=== PATIENT | male | born 1940 | race Native Hawaiian/Other Pacific Islander ===

== ENCOUNTER 2018-07-17 11:31 | Observation (INO) | payer OTHER ==
[2018-07-17 11:38] VITALS: BMI 18.3
[2018-07-17 12:35] LABS: BASO % 0.6 % (0.0-2.0); EOS # 0.1 K/uL (0.0-0.7); HEMOGLOBIN 13.6 g/dL (12.0-18.0); LYMPH # 0.8 K/uL (1.0-4.3); LYMPH % 10.8 % (20.0-40.0); MEAN CELL VOLUME 92.7 fl (80.0-94.0); MEAN CORPUSCULAR HEMOGLOBIN 31.2 pg (27.0-31.0); MEAN CORPUSCULAR HGB CONC 33.7 g/dL (33.0-37.0); MONO # 0.5 K/uL (0.0-0.8); MONO % 7.3 % (0.0-10.0); NEUT % 79.3 % (50.0-75.0); RBC 4.34 Mil/uL (4.40-5.90); WHITE BLOOD COUNT 7.5 K/uL (4.8-10.8)
[2018-07-17 12:37] LABS: INR 1.3; PROTHROMBIN TIME 15.3 Seconds (9.8-13.1)
[2018-07-17 12:39] LABS: PARTIAL THROMBOPLASTIN TIME 44.9 Seconds (25.6-37.1)
[2018-07-17 12:42] LABS: BLOOD UREA NITROGEN 24 mg/dl (9-20); CALCIUM 9.4 mg/dL (8.4-10.2); GFR NON-AFRICAN AMERICAN 59
[2018-07-17 12:54] LABS: B-TYPE NATRIURETIC PEPTIDE 218 pg/ml (0-900)
--- NOTE | 2018-07-17 13:44 | CT ---
Date of service: 07/17/2018 PROCEDURE: CT HEAD WITHOUT CONTRAST. HISTORY: head trauma COMPARISON: None available. TECHNIQUE: Axial computed tomography images were obtained through the head/brain without intravenous contrast. Radiation dose: Total exam DLP = 855.52 mGy-cm. This CT exam was performed using one or more of the following dose reduction techniques: Automated exposure control, adjustment of the mA and/or kV according to patient size, and/or use of iterative reconstruction technique. FINDINGS: HEMORRHAGE: No intracranial hemorrhage. BRAIN: No mass effect or edema. No atrophy or chronic microvascular ischemic changes. VENTRICLES: Unremarkable. No hydrocephalus. CALVARIUM: Unremarkable. PARANASAL SINUSES: Unremarkable as visualized. No significant inflammatory changes. MASTOID AIR CELLS: Unremarkable as visualized. No inflammatory changes. OTHER FINDINGS: None. IMPRESSION: Normal CT of the Head.
--- NOTE | 2018-07-17 13:50 | CT ---
Date of service: 07/17/2018 PROCEDURE: CT Cervical Spine without contrast HISTORY: head trauma COMPARISON: None available. TECHNIQUE: Axial computed tomography images were obtained of the cervical spine without the use of intravenous contrast. Coronal and sagittal reformatted images were created and reviewed. Radiation dose: Total exam DLP = 274.9 mGy-cm. This CT exam was performed using one or more of the following dose reduction techniques: Automated exposure control, adjustment of the mA and/or kV according to patient size, and/or use of iterative reconstruction technique. FINDINGS: VERTEBRAE: No fracture. Scoliosis. No destructive bony lesion. DISCS/SPINAL CANAL/NEURAL FORAMINA: No significant central canal or neural foraminal stenosis. Discs heights are grossly preserved. PARASPINAL SOFT TISSUES: Unremarkable. OTHER FINDINGS: Severe bullous disease in the lung apices. IMPRESSION: No acute fracture.
[2018-07-17] MEDS ORDERED: Sodium Chloride 0.9% 1,000 ML IV STA (13:57)
--- NOTE | 2018-07-17 14:04 | ED PDOC ---
Syncope/Near Syncope/Dizziness Time Seen by Provider: 07/17/18 11:52 Chief Complaint (Nursing): Trauma Chief Complaint (Provider): syncope and head injury History Per: Patient History/Exam Limitations: no limitations Onset/Duration Of Symptoms: Hrs Fall Associated With With Symptoms: Positive Injury Additional Complaint(s): Michael Maciel is a 78 year old male, with a past medical history of emphysema, who presents to the emergency department accompanied by daughter for evaluation of bleeding to posterior head s/p syncopal episode. According to daughter, she went to check on him this morning and found him on the kitchen floor with a paper towel against his head and bleeding. Patient has no recollection of how he fell and doesn't remember sitting up or getting a paper towel. Patient had an MRI due to dizziness a few months ago that showed degenerative age related changes and also had full cardiac and neurologic work up since. Daughter reports that patient has full mental function and takes care of his grandkids on a regular basis. Patient is seeming more confused and forgetful right now. He denies any current pain to the head or neck. He denies any fever, chills, chest pain, shortness of breath or other medical complaints. PMD: None provided. Past Medical History Reviewed: Historical Data, Nursing Documentation, Vital Signs Vital Signs: Last Vital Signs Temp 97.7 F 07/17/18 11:35 Pulse 55 L 07/17/18 11:35 Resp 18 07/17/18 11:35 BP 158/65 H 07/17/18 11:35 Pulse Ox 99 07/17/18 11:35 - Medical History PMH: Emphysema - Surgical History Surgical History: No Surg Hx - Family History Family History: States: Unknown Family Hx - Social History Current smoker - smoking cessation education provided: No Alcohol: None Drugs: Denies - Allergies Allergies/Adverse Reactions: Allergies Allergy/AdvReac Type Severity Reaction Status Date / Time No Known Allergies Allergy Verified 07/17/18 11:43 Review of Systems ROS Statement: Except As Marked, All Systems Reviewed And Found Negative Constitutional: Negative for: Fever, Chills Cardiovascular: Negative for: Chest Pain Respiratory: Negative for: Shortness of Breath Skin: Positive for: Other (head injury) Neurological: Positive for: Confusion (and forgetfullness), Other (syncopal episode). Negative for: Headache Physical Exam - Reviewed Nursing Documentation Reviewed: Yes Vital Signs Reviewed: Yes - Physical Exam Appears: Positive for: Non-toxic, No Acute Distress Head Exam: Positive for: NORMAL INSPECTION, NORMOCEPHALIC. Negative for: ATRAUMATIC (1cm linear laceration with minimal bleeding to the left occiput, no tenderness to palpation of spine.) Skin: Positive for: Normal Color, Warm, Dry Eye Exam: Positive for: Normal appearance, EOMI, PERRL Neck: Positive for: Normal, Painless ROM, Supple Cardiovascular/Chest: Positive for: Regular Rate, Rhythm. Negative for: Murmur Respiratory: Positive for: Normal Breath Sounds. Negative for: Respiratory Distress Gastrointestinal/Abdominal: Positive for: Normal Exam, Soft. Negative for: Tenderness, Guarding, Rebound Back: Positive for: Normal Inspection. Negative for: L CVA Tenderness, R CVA Tenderness, Vertebral Tenderness Extremity: Positive for: Normal ROM (upper and lower extremities). Negative for: Tenderness, Deformity, Swelling Neurological/Psych: Positive for: Awake, Alert, Normal Tone, Symmetric/Intact Strength, Oriented, Cerebellar Tests (normal), independent beauty consultant II-XII (intact). Negative for: Lethargic, Motor/Sensory Deficits, Facial Droop - Laboratory Results Result Diagrams: 07/17/18 12:00 07/17/18 12:00 Lab Results: PT 15.3 Seconds (9.8-13.1) H 07/17/18 12:00 INR 1.3 07/17/18 12:00 APTT 44.9 Seconds (25.6-37.1) H 07/17/18 12:00 Troponin I < 0.0120 ng/mL (0.00-0.120) 07/17/18 12:00 NT-Pro-B Natriuret Pep 218 pg/ml (0-900) 07/17/18 12:00 - ECG O2 Sat by Pulse Oximetry: 99 (RA) Pulse Ox Interpretation: Normal Medical Decision Making Medical Decision Making: Time: 11:22 Initial Impression: Most likely syncope with subsequent head trauma. CT head and cervical spine, cardiac work up and most likely admission Initial Plan: --Type and screen --Cervical spine w/o contrast [CT] --Head w/o contrast [CT] --BNP --BMP --Troponin I --CBC w/ differential --PTT --PT --Chest portable [RAD] --NaCl 1,000 ml IV 1,000 mls/hr --Reevaluation 13:[address] FINDINGS: HEMORRHAGE: No intracranial hemorrhage. BRAIN: No mass effect or edema. No atrophy or chronic microvascular ischemic changes. VENTRICLES: Unremarkable. No hydrocephalus. CALVARIUM: Unremarkable. PARANASAL SINUSES: Unremarkable as visualized. No significant inflammatory changes. MASTOID AIR CELLS: Unremarkable as visualized. No inflammatory changes. OTHER FINDINGS: None. IMPRESSION: Normal CT of the Head. 13:[address] FINDINGS: VERTEBRAE: No fracture. Scoliosis. No destructive bony lesion. DISCS/SPINAL CANAL/NEURAL FORAMINA: No significant central canal or neural foraminal stenosis. Discs heights are grossly preserved. PARASPINAL SOFT TISSUES: Unremarkable. OTHER FINDINGS: Severe bullous disease in the lung apices. IMPRESSION: No acute fracture. 13:[address] head and neck unremarkable. Admitted for syncope to OBS to the hospitalist. Scribe Attestation: Documented by Sean Knott, acting as a scribe for Christine Clayton MD. Provider Scribe Attestation: All medical record entries made by the Scribe were at my direction and personall y dictated by me. I have reviewed the chart and agree that the record accurately reflects my personal performance of the history, physical exam, medical decision making, and the department course for this patient. I have also personally directed, reviewed, and agree with the discharge instructions and disposition. Time: 1500 -- At this time, patient is refusing to stay. Patient would like to follow up with PMD. Provider explained risk of developing brain bleed and cardiac abnormalities which lead to syncope. Discussed with family and resident. Patient's daughters support the decision not to stay. Family practice resident also explained risk of leaving. Given information to contact medical records for lab results. Patient and family advised to return if change in mind or new symptoms develop. Otherwise, patient is to follow up with PMD tomorrow. Scribe Attestation: Documented by Melinda Gauthier, acting as a scribe for Christine Clayton MD. Provider Scribe Attestation: All medical record entries made by the Scribe were at my direction and personally dictated by me. I have reviewed the chart and agree that the record accurately reflects my personal performance of the history, physical exam, medical decision making, and the department course for this patient. I have also personally directed, reviewed, and agree with the discharge instructions and disposition. Disposition - Clinical Impression Clinical Impression: Syncope and collapse, Head injury due to trauma - Disposition Disposition: Against Medical Advice Disposition Time: 13:58 Condition: GUARDED
--- NOTE | 2018-07-17 14:57 | RAD ---
Date of service: 07/17/2018 HISTORY: possible admission COMPARISON: No prior. TECHNIQUE: 1 view obtained. FINDINGS: LUNGS: No active pulmonary disease. PLEURA: No significant pleural effusion identified, no pneumothorax apparent. CARDIOVASCULAR: aortic atherosclerotic calcification present. Normal cardiac size. No pulmonary vascular congestion. OSSEOUS STRUCTURES: No significant abnormalities. VISUALIZED UPPER ABDOMEN: Normal. OTHER FINDINGS: None. IMPRESSION: No active disease.
[2018-07-17 15:43] VITALS: BP 132/74; PULSE 64; RESP 19; TEMP 98.6
[2018-07-17 16:27] VITALS: O2SAT 99
--- NOTE | 2018-07-17 17:26 | CP.PCM.CON ---
History of Present Illness - History of Present Illness History of Present Illness: Neurology Consultation Note: Consult requested by Dr. Woods Mr. Maciel is a 78-year-old man with a past medical history of GERD and previous syncopal episode with cardiac and neurological work-up, who was found by his daughter after another syncopal episode that resulted in an occipital laceration. He was holding a napkin to his head due to bleeding when she found him. He did not recall how he fell, or even recall going to obtain a the napkin for the blood. Non-contrast CT scan of the head was normal. Neurology was consulted to assist with the management and care. Review of Systems - Review of Systems All systems: reviewed and no additional remarkable complaints except Past Patient History - Past Social History Alcohol: None Drugs: Denies - CARDIAC Other/Comment: heart problem - PULMONARY Hx Emphysema: Yes - PSYCHIATRIC Hx Substance Use: No Meds Allergies/Adverse Reactions: Allergies Allergy/AdvReac Type Severity Reaction Status Date / Time No Known Allergies Allergy Verified 07/17/18 11:43 - Medications Medications: Current Medications Pantoprazole Sodium (Protonix Ec Tab) 40 mg PO DAILY ROXANA Physical Exam - Constitutional Appears: Well - Head Exam Additional comments: Laceration to occiput - Eye Exam Eye Exam: EOMI, Normal appearance, PERRL Pupil Exam: NORMAL ACCOMODATION, PERRL - ENT Exam ENT Exam: Mucous Membranes Moist, Normal Exam - Neck Exam Neck exam: Positive for: Normal Inspection - Respiratory Exam Respiratory Exam: Clear to Auscultation Bilateral, NORMAL BREATHING PATTERN - Cardiovascular Exam Cardiovascular Exam: REGULAR RHYTHM - GI/Abdominal Exam GI & Abdominal Exam: Normal Bowel Sounds, Soft. absent: Tenderness - Extremities Exam Extremities exam: Positive for: normal inspection - Back Exam Back exam: NORMAL INSPECTION - Neurological Exam Neurological exam: Alert, CN II-XII Intact, Normal Gait, Oriented x3, Reflexes Normal - Psychiatric Exam Psychiatric exam: Normal Affect, Normal Mood - Skin Skin Exam: Dry, Intact, Normal Color, Warm Results - Vital Signs Recent Vital Signs: Last Vital Signs Temp 98.6 F 07/17/18 15:30 Pulse 64 07/17/18 15:30 Resp 19 07/17/18 15:30 BP 132/74 07/17/18 15:30 Pulse Ox 99 07/17/18 16:27 - Labs Result Diagrams: 07/17/18 12:00 07/17/18 12:00 Labs: Laboratory Results - last 24 hr 07/17/18 07/17/18 07/17/18 12:00 12:00 12:00 WBC 7.5 RBC 4.34 L Hgb 13.6 Hct 40.2 MCV 92.7 MCH 31.2 H MCHC 33.7 RDW 14.0 Plt Count 158 MPV 9.0 Neut % (Auto) 79.3 H Lymph % (Auto) 10.8 L [place] % (Auto) 7.3 Eos % (Auto) 2.0 Baso % (Auto) 0.6 Neut # (Auto) 6.0 Lymph # (Auto) 0.8 L [place] # (Auto) 0.5 Eos # (Auto) 0.1 Baso # (Auto) 0.0 PT INR APTT Sodium 138 Potassium 4.9 Chloride 103 Carbon Dioxide 24 Anion Gap 16 BUN 24 H Creatinine 1.2 Est GFR ( Amer) > 60 Est GFR (Non-Af Amer) 59 Random Glucose 127 H Calcium 9.4 Troponin I < 0.0120 NT-Pro-B Natriuret Pep 218 Blood Type O POSITIVE Blood Type Confirm Antibody Screen Negative BBK History Checked No verified bt 07/17/18 07/17/18 12:00 13:54 WBC RBC Hgb Hct MCV MCH MCHC RDW Plt Count MPV Neut % (Auto) Lymph % (Auto) [place] % (Auto) Eos % (Auto) Baso % (Auto) Neut # (Auto) Lymph # (Auto) [place] # (Auto) Eos # (Auto) Baso # (Auto) PT 15.3 H INR 1.3 APTT 44.9 H Sodium Potassium Chloride Carbon Dioxide Anion Gap BUN Creatinine Est GFR ( Amer) Est GFR (Non-Af Amer) Random Glucose Calcium Troponin I NT-Pro-B Natriuret Pep Blood Type Blood Type Confirm O POSITIVE Antibody Screen BBK History Checked Assessment & Plan (1) Syncope and collapse Assessment and Plan: Will order EEG for further evaluation as well as CTA of the head/neck to rule out VBI or other causes of syncope. Otherwise, cardiac work-up is recommended along with a Linq device for further outpatient monitoring. Thank you for this consultation. Status: Acute
[2018-07-17] MEDS ORDERED: Iodixanol 320 MG/ML 100 ML BOTTLE IV ONE (17:40)
[2018-07-17] MEDS ORDERED: Sodium Chloride 0.9% 0 ML IV ONE (17:40)
[2018-07-18] MEDS ORDERED: Pantoprazole 40 mg EC Tab PO SCH (09:00)
== END 2018-07-17 15:42 | disposition left against medical advice (07) ==
LOC: H.ER 11:31 → H.ERHOLD 13:58
DX: R55 Syncope and collapse (principal); S01.81XA Laceration without foreign body of other part of head, initial encounter; J43.9 Emphysema, unspecified; W18.39XA Other fall on same level, initial encounter; Y92.9 Unspecified place or not applicable
CPT/HCPCS: 12001; 70450; 71045; 72125; 80048; 83880; 84484; 85025; 85610; 85730; 86850; 86900; 99284; G0378